=== PATIENT | female | born 1965 | race Caucasian/White ===

== ENCOUNTER 2018-04-25 05:56 | Day surgery (SDC) | payer OTHER, BC ==
[2018-04-25] MEDS ORDERED: LACTATED RINGER'S 1,000 ML IV* (07:00)
[2018-04-25] MEDS ORDERED: LIDOCAINE 2% (SDV) 5 ML INJ (07:00)
[2018-04-25] MEDS ORDERED: FENTAnyl 50 MCG/ML VIAL (07:25)
[2018-04-25] MEDS ORDERED: PROPOFOL 40 ML (07:25)
[2018-04-25] MEDS ORDERED: MIDAZOLAM 1 MG/ML 2 ML INJ (07:25)
[2018-04-25] MEDS ORDERED: FAMOTIDINE 20 MG INJ (07:26)
[2018-04-25] MEDS: METOCLOPRAMIDE 10 MG INJ IV (07:28)
[2018-04-25] MEDS ORDERED: OXYCODONE/ACETAMINOPHEN (5/325) TAB PO ×2 (07:30)
[2018-04-25] MEDS ORDERED: HYDROmorphONE 1 MG/5 ML IV SYRINGE IV ×2 (07:30)
[2018-04-25] MEDS ORDERED: LABETALOL HCL 20MG INJ IV (07:30)
[2018-04-25] MEDS ORDERED: ALBUTEROL 0.083% (NEB) 2.5 MG/3 ML AMP HHN (07:30)
[2018-04-25] MEDS ORDERED: ONDANSETRON 4 MG INJ IV (07:30)
[2018-04-25] MEDS ORDERED: FENTAnyl 50 MCG/ML VIAL IV ×2 (07:30)
[2018-04-25] MEDS ORDERED: MEPERIDINE 25 MG INJ IV (07:30)
[2018-04-25] MEDS ORDERED: morphine (1 MG/ML) 10ML SYRINGE IV ×2 (07:30)
[2018-04-25] MEDS ORDERED: DIPHENHYDRAMINE 50 MG INJ IV (07:30)
[2018-04-25] MEDS ORDERED: CEFAZOLIN 1 GM INJ (07:45)
== END 2018-04-25 10:22 | disposition home or self-care (01) ==
LOC: SDS 05:56
DX: N88.2 Stricture and stenosis of cervix uteri (principal)
CPT/HCPCS: 57505; 88305